=== PATIENT | male | born 1950 | race Caucasian/White ===

== ENCOUNTER 2016-09-09 09:21 | Inpatient (IN) | payer MEDICARE, OTHER ==
--- NOTE | 2016-09-08 12:33 | MH ---
cc: [facility] DATE OF ADMISSION: 09/17/2016 ADMITTING DIAGNOSIS Severe osteoarthritis of the right knee and pain of the right knee. HISTORY OF PRESENT ILLNESS The patient is a 66-year-old white male who has had a longstanding history of bilateral knee pain extending back for greater than 5 years. His symptoms initially were more pronounced about his left knee for which he had been diagnosed in the past as having osteoarthritis and in the past was treated conservatively which included viscosupplementation, cortisone injection and prescribed medication including Lortab for pain management. He became progressively more symptomatic with pain and subsequently underwent a left total knee arthroplasty completed in August 2014 for which the patient was noted to have tolerated his operative procedure well and completing an uneventful postoperative recovery thereafter. With the passage of time the patient became progressively more symptomatic with pain involving his right knee for which he had undergone a more recent MRI scan evaluation which identified tricompartmental osteoarthritis, especially throughout the medial compartment with chronic degeneration and complex tears of the medial meniscus. There was a tear of the anterior cruciate ligament as well associated with a popliteal cyst. The patient had indicated his desire to proceed with further disposition with regards to the pain about his right knee and having noted the favorable response that he had experienced from his previous surgery involving the left knee he was desirous of completing similar management with regards to his right knee condition. Once again the involvement of total knee arthroplasty was outlined in detail for which the patient indicated full understanding and expressed his desire to proceed accordingly. In compliance with his wishes he is currently being admitted in order that the above be accomplished. PAST MEDICAL HISTORY His past medical history, hospitalizations and surgeries in addition to his left total knee arthroplasty included: 1. Radiation therapy for a history of cancer of the prostate followed by seed implants. 2. Colonoscopy. His medical illnesses include hypertension. MEDICATIONS 1. Kesha 10/40 mg daily for hypertension. 2. Paxil 40 mg daily for anxiety. 3. Lortab 10 mg and ibuprofen p.r.n. for pain management. ALLERGIES HE INDICATES A DRUG ALLERGY TO CHOLESTEROL MEDICATION THAT HAS CAUSED CRAMPS AND SPASMS AND SWEATS. REVIEW OF SYSTEMS He wears glasses for reading purposes. No headache, seizure or syncope. Occasional sinus congestion. No epistaxis. Diminished auditory acuity for which bilateral hearing aids are utilized. No tinnitus. No bleeding gums or dysphagia. No cough, shortness of breath, upper respiratory infection. He has a history of pneumonia. No angina or heart disease. Medically managed for hypertension. Appetite good. Bowel movements regular. No hepatitis, gallbladder disease, ulcers or hemorrhoids. No urinary tract infection. No kidney stones. Prostate cancer as described. No previous fractures. No psychiatric illness. His remaining review of systems is unremarkable and noncontributory. FAMILY HISTORY 47 years. His is 66 years of age and indicated to be in good health. One son and one daughter. His daughter has a history of ulcerative colitis. Family history is positive for hypertension, diabetes, heart disease, breast and prostate cancer. 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 He completed a high school education. Denies active use of tobacco. Ethanol consumption denied for at least more than 25 years but had been a social drinker in the past. PHYSICAL EXAMINATION Height 6 feet 1 inch, weight 290 pounds. GENERAL: An alert, oriented and responsive 66-year-old white male who sits quietly upon the examination table with no obvious distress. HEAD, EYES, EARS, NOSE, AND THROAT: Pupils are equally round and reactive to light. Extraocular movements full. Sclera clear. External nares clear. External auditory canals clear. Semi-edentulous. Mucous membranes pink and moist. Pharynx clear. NECK: Supple. Active range of motion without significant pain. Carotid pulse palpable bilaterally. Trachea midline. Thyroid without enlargement. LUNGS: Clear to auscultation and percussion. BACK: No CVA tenderness. No discomfort throughout the dorsolumbar spine. HEART: Regular rhythm. No murmur or gallop. ABDOMEN: Soft, nontender. Bowel sounds present. RECTAL: Per primary care physician. EXTREMITIES: Right knee: No obvious swelling or effusion. There is limited mobility in the 100 degrees range of flexion with mild discomfort at the extreme of motion. No associated crepitation. No collateral ligamentous instability. Michaela test and drawer sign negative. Pivot shift and Ashvin sign positive for medial compartment pain. Straight-leg raising unremarkable at 80 degrees. Satisfactory mobility of the right hip with no associated pain. Mild antalgic gait. NEUROLOGIC: Cranial nerves II through XII grossly intact. IMPRESSION Severe osteoarthritis of the right knee, pain right knee. PLAN Right total knee arthroplasty. Once again the nature of the planned surgical procedure, the potential complications and risks associated, the expectations of surgery and the consent form were thoroughly reviewed with the patient prior to his admission to the hospital. Magy has indicated his full understanding regarding all of the above and given consent to proceed with treatment as outlined. MD TOBI Genao/BT /12:09 PM /12:23 PM
[~2016-09-09] VITALS: Ht 185.4 cm; Wt 133.0 kg
[2016-09-09] MEDS ORDERED: PAXI40TA PO (09:41)
[2016-09-09] MEDS ORDERED: AZOR10TA4 PO (09:41)
[2016-09-09] MEDS ORDERED: MOTR200T4 PO (09:41)
[2016-09-09] MEDS ORDERED: HYDR-3535 PO (09:41)
[2016-09-17] MEDS ORDERED: BUPIVACAINE HCL PF 0.25% 30 ML VIAL NERV BLOCK ONE (07:47)
[2016-09-17] MEDS ORDERED: BUPIVACAINE HCL PF 0.5% 30 ML VIAL NERV BLOCK ONE (07:47)
[2016-09-17] MEDS ORDERED: METOPROLOL TARTRATE 25 MG TAB PO PRN (08:15)
[2016-09-17] MEDS ORDERED: LACTATED RINGER'S 1000 ML IV SCH (08:15)
[2016-09-17] MEDS ORDERED: ceFAZolin 2 GM PREMIX 50 ML IV SCH (08:15)
[2016-09-17] MEDS ORDERED: TRANEXAMIC ACID 1 GM PRIOR TO PROCEDURE IV SCH ×2 (08:15)
[2016-09-17] MEDS ORDERED: SODIUM CHLORID 0.9% 500 ML IV SCH (08:15)
[2016-09-17] MEDS ORDERED: INSULIN HUMAN REGULAR 1,000 UNITS/10 ML VIAL SQ PRN (08:15)
[2016-09-17] MEDS ORDERED: TRANEXAMIC ACID 1 GM POST-OP IV SCH ×2 (08:15)
[2016-09-17 08:18] VITALS: BP 133/85; PULSE 69; RESP 16; TEMP 98.8; O2SAT 97
[2016-09-17] MEDS ORDERED: FAMOTIDINE 20 MG/2 ML VIAL ONE (09:34)
[2016-09-17] MEDS ORDERED: MIDAZOLAM HCL 5 MG/5 ML VIAL ONE (09:34)
[2016-09-17] MEDS ORDERED: ceFAZolin INJ 1,000 MG VIAL ONE (09:57)
[2016-09-17] MEDS ORDERED: SODIUM CHLORIDE 0.9% 20 ML VIAL ONE (10:03)
[2016-09-17] MEDS ORDERED: TRANEXAMIC ACID INJ 1,000 MG/10 ML AMP IV ONE (10:33)
[2016-09-17] MEDS ORDERED: PROPOFOL 200 MG/20 ML AMP IV ONE (12:04)
[2016-09-17] MEDS ORDERED: ePHEDrine/NS 25 MG/5 ML SYR IV ONE (12:04)
[2016-09-17] MEDS ORDERED: PHENYLEPH/NS 1000 MCG/10 ML SYR IV ONE (12:05)
[2016-09-17] MEDS ORDERED: NEOSTIGMINE 3 MG/3 ML SYR IV ONE (12:05)
[2016-09-17] MEDS ORDERED: LACTATED RINGER'S 1000 ML INJ 1,000 ML IV ONE (12:05)
[2016-09-17] MEDS ORDERED: ONDANSETRON HCL 4 MG/2 ML VIAL IV PUSH ONE (12:05)
[2016-09-17] MEDS: DEXT 5%-NACL 0.45% 1000 ML INJ 1,000 ML IV SCH (12:38)
[2016-09-17] MEDS ORDERED: *morphine SULFATE 8 MG/ML PERIprocedure ONLY ONE ×2 (12:39→13:15)
[2016-09-17] MEDS ORDERED: fentaNYL CITRATE 250 MCG/5 ML AMP ONE (12:40)
[2016-09-17] MEDS ORDERED: ACETAMINOPHEN 325 MG TAB PO PRN (12:45)
[2016-09-17] MEDS ORDERED: MORPHINE SULFATE 30 MG/30 ML PCA IV SCH (12:45)
[2016-09-17] MEDS ORDERED: MAGNESIUM HYDROXIDE SUSP 30 ML CUP PO PRN (12:45)
[2016-09-17] MEDS ORDERED: Post-op Orders (for Pharmacy) MISC XX ONE (12:45)
[2016-09-17] MEDS ORDERED: DOCUSATE SODIUM 100 MG CAP PO PRN (12:45)
[2016-09-17] MEDS ORDERED: ACETAMINOPHEN/HYDROcodone 325 MG/5 MG TAB PO PRN (12:45)
[2016-09-17] MEDS ORDERED: MISCELLANEOUS PHARMACY INFORMATION XX ONE (12:45)
[2016-09-17] MEDS ORDERED: TRANEXAMIC ACID INJ 1,000 MG in SODIUM CHLORIDE 0.9% INJ 100 ML IV SCH (12:45)
[2016-09-17] MEDS ORDERED: ZOLPIDEM TARTRATE 5 MG TAB PO PRN (12:45)
[2016-09-17] MEDS ORDERED: NALOXONE HCL 0.4 MG/ML AMP IV PRN (12:45)
[2016-09-17] MEDS ORDERED: SODIUM CHLORIDE 0.9% FLUSH 5 ML FLUSH IVF PRN (12:45)
[2016-09-17] MEDS ORDERED: BISACODYL 10 MG SUPP RECTAL PRN (12:45)
[2016-09-17] MEDS ORDERED: diphenhydrAMINE HCL 25 MG CAP PO PRN (12:45)
[2016-09-17] MEDS ORDERED: DO NOT ADM ANY ANTICOAGULANT DRUGS PRN (13:15)
--- NOTE | 2016-09-17 13:51 | RADRPT ---
EXAM DATE/TIME: 09/17/2016 13:00 [facility] COMPARISON: No previous studies available for comparison. INDICATIONS : Post op right knee. MEDICAL HISTORY : Hypertension. Carcinoma, prostatic. Radiation therapy. SURGICAL HISTORY : Vasectomy. Seed implant. ENCOUNTER: Initial ACUITY: 1 day PAIN SCORE: 0/10 LOCATION: Right knee. FINDINGS: 2 views of the knee show a total knee prosthesis in good position. No fracture or dislocation is obse rved. Soft tissue swelling is noted. Surgical drain noted. CONCLUSION: Total knee prosthesis in good position. Sean Alvarado Jr., MD on September 17, 2016 at 13:46 Board Certified Radiologist. This report was verified electronically.
[2016-09-17] MEDS: ONDANSETRON HCL 4 MG/2 ML VIAL IVP PRN (17:40)
--- NOTE | 2016-09-17 18:18 | PD.CONS ---
HPI Service [facility] Hospitalists Consult Requested By Dr. Templeton Reason for Consult Medical management Primary Care Physician Geraldo Busch M.D. Diagnoses: History of Present Illness This a pleasant 66-year-old male with history of osteoarthritis, hypertension. Patient has a long-standing history of osteoarthritis, has failed conservative management as outpatient. Patient admitted for elective surgery, underwent a left total knee arthroplasty. Patient is examined in the recovery room, pain is tolerable. Hemodynamically stable. Denies any chest pain, no shortness of breath. Hospitalist services are requested for medical management. (Kathy Cordoba) Review of Systems Constitutional: DENIES: Diaphoretic episodes, Fatigue, Fever, Weight gain, Weight loss, Chills, Dizziness, Change in appetite, Night Sweats Endocrine: DENIES: Heat/cold intolerance, Polydipsia, Polyuria, Polyphagia Eyes: DENIES: Blurred vision, Diplopia, Eye inflammation, Eye pain, Vision loss , Photosensitivity, Double Vision Ears, nose, mouth, throat: DENIES: Tinnitus, Hearing loss, Vertigo, Nasal discharge, Oral lesions, Throat pain, Hoarseness, Ear Pain, Running Nose, Epistaxis, Sinus Pain, Toothache, Odynophagia Respiratory: DENIES: Apneas, Cough, Snoring, Wheezing, Hemoptysis, Sputum production, Shortness of breath Cardiovascular: DENIES: Chest pain, Palpitations, Syncope, Dyspnea on Exertion , PND, Lower Extremity Edema, Orthopnea, Claudication Gastrointestinal: DENIES: Abdominal pain, Black stools, Bloody stools, Constipation, Diarrhea, Nausea, Vomiting, Difficulty Swallowing, Anorexia Genitourinary: DENIES: Sexual dysfunction, Urinary frequency, Urinary incontinence, Urgency, Hematuria, Dysuria, Nocturia, Penile Discharge, Testicular Pain, Testicular Swelling Musculoskeletal: COMPLAINS OF: Joint pain, DENIES: Muscle aches, Stiffness, Joint Swelling, Back pain, Neck pain Integumentary: DENIES: Abnormal pigmentation, Nail changes, Pruritus, Rash Hematologic/lymphatic: DENIES: Bruising, Lymphadenopathy Immunologic/allergic: DENIES: Eczema, Urticaria Neurologic: DENIES: Abnormal gait, Headache, Localized weakness, Paresthesias, Seizures, Speech Problems, Tremor, Poor Balance Psychiatric: DENIES: Anxiety, Confusion, Mood changes, Depression, Hallucinations, Agitation, Suicidal Ideation, Homicidal Ideation, Delusions ( Kathy Cordoba) Past Family Social History Past Medical History 1. Hypertension. 2. Hyperlipidemia. 3. Anxiety. 4. Arthritis. 5. History of prostate cancer status post radiation therapy and seed implants. Past Surgical History Left knee arthroplasty 2014 Reported Medications Reported Meds & Active Scripts Active Reported Motrin Ib (Ibuprofen) 200 Mg Tab 800 Mg PO Q4H PRN Lortab (Hydrocodone-Acetaminophen) 10-325 Mg Tab 1 Tab PO Q6H PRN Paxil (Paroxetine HCl) 40 Mg Tab 40 Mg PO DAILY Kesha (Amlodipine-Olmesartan) 10-40 Mg Tab 1 Tab PO DAILY (Kathy Cordoba) Allergies: Coded Allergies: HMG-CoA Reductase Inhibitors (Verified Allergy, Severe, Cramping, 09/09/16) Lipitor (Unverified Allergy, Intermediate, MUSCLE CRAMPS; SWEATING ; ALLERGIC TO ALL CHOLES MEDS, 09/09/16) Active Ordered Medications Inpatient Medications Acetaminophen 650 mg 650 mg Q6H PRN PO Temp > 101; Start 09/17/16 at 12:45 Acetaminophen/ Hydrocodone Bitart ([place] 5-325 Mg) 2 tab Q4H PRN PO PAIN SCALE 5 TO 10; Start 09/17/16 at 12:45 Bisacodyl (Dulcolax Supp) 10 mg DAILY PRN RECTAL CONSTIPATION; Start 09/17/16 at 12:45 Cefazolin Sodium/ Dextrose 50 ml @ 100 mls/hr PROGRAM DIRECTOR CABLE TELEVISION IV ; Start 09/17/16 at 08:15; Stop 09/20/16 at 08:14 Cefazolin Sodium/ Sodium Chloride (Ancef Inj/NS Inj) 100 ml @ 200 mls/hr Q6H IV Last administered on 09/17/16t 17:50; Start 09/17/16 at 15:00; Stop at 03:29 Dextrose/Sodium Chloride (D5W-1/2 NS 1000 ml Inj) 1,000 ml @ 125 mls/hr Q8H IV ; Start 09/17/16 at 12:38 Diphenhydramine HCl (Benadryl) 25 mg Q6H PRN PO ITCHING; Start 09/17/16 at 12: 45 Docusate Sodium (Colace) 100 mg BID PRN PO constipation; Start 09/17/16 at 12: 45 Insulin Human Regular (NovoLIN R INJ) See Protocol Table ... UNSCH X1 PRN SQ SEE PROTOCOL; Start 09/17/16 at 08:15; Stop 09/18/16 at 08:14 IV Flush (NS Flush) 2 ml UNSCH PRN IVF FLUSH AFTER USING IV ACCESS; Start 09/17 at 12:45 IV Flush 2 ml 2 ml BID IVF ; Start 09/17/16 at 21:00 Lactated Ringer's 1,000 ml @ 30 mls/hr Q24H IV ; Start 09/17/16 at 08:15 Magnesium Hydroxide (Milk Of Magnesia Liq) 30 ml DAILY PRN PO CONSTIPATION; Start 09/17/16 at 12:45 Metoprolol Tartrate (Lopressor) 25 mg UNSCH X1 PRN PO SEE LABEL COMMENTS; Start 09/17/16 at 08:15; Stop 09/18/16 at 08:14 Miscellaneous Information ALL NURSING DEPARTME... UNSCH PRN .XX SEE LABEL COMMENTS; Start 09/17/16 at 13:15; Stop 09/18/16 at 13:14 Miscellaneous Information (Post-op Orders (for Pharmacy)) STAT ONCE XX ; Start 09/17/16 at 12:45; Stop 09/17/16 at 13:33; Status DC Miscellaneous Medication ([facility]) ONCE ONCE XX ; Start at 12:45; Stop 09/17/16 at 13:32; Status DC Morphine Sulfate (Morphine 1 Mg/ ml MOTOR AND CHASSIS INSPECTOR) 30 mg UNSCH IV Last administered on 17:56; Start 09/17/16 at 12:45 Naloxone HCl (Narcan Inj) 0.4 mg UNSCH PRN IV RESPIRATORY RATE LESS THAN 10; Start 09/17/16 at 12:45 Ondansetron HCl (Zofran Inj) 4 mg Q6H PRN IVP NAUSEA OR VOMITING Last administered on 09/17/16 17:40; Start 09/17/16 at 12:45 MOTOR AND CHASSIS INSPECTOR Dosage Infused (Pha) 1 1 Q8HR .XX ; Start 09/17/16 at 14:00 Povidone Iodine 1 applic 1 applic ONCE TOPICAL ; Start 09/17/16 at 08:15; Stop 09/20/16 at 08:14 Rivaroxaban (Xarelto) 10 mg Q24H PO ; Start 09/18/16 at 11:00 Sodium Chloride (NS 500 ml Inj) 500 ml @ 30 mls/hr [id number] IV ; Start 09/17/16 at 08:15; Stop 09/18/16 at 08:14 Tranexamic Acid 1000 mg/Sodium Chloride 110 ml @ 220 mls/hr ONCE IV ; Start at 08:15; Stop 09/18/16 at 08:14 Tranexamic Acid/ Sodium Chloride (Cyklokapron Inj/ NS Inj) 110 ml @ 200 mls/hr UNSCH IV ; Start 09/17/16 at 12:45; Stop 09/17/16 at 13:21; Status DC Zolpidem Tartrate (Ambien) 5 mg HS PRN PO SLEEP; Start 09/17/16 at 12:45 Family History Positive for hypertension, diabetes and heart conditions. Social History The patient does not smoke. Occasional ETOH. No substance abuse. , lives with . (Kathy Cordoba) Physical Exam Vital Signs Vital Signs Date Time Temp Pulse Resp B/P Pulse Ox O2 Delivery O2 Flow Rate FiO2 09/17/16 17:56 18 09/17/16 12:37 98.1 76 16 122/73 94 Nasal Cannula 3 09/17/16 08:18 98.8 69 16 133/85 97 Physical Exam GENERAL: This is a well-nourished, well-developed patient, in no apparent distress. SKIN: No rashes, ecchymoses or lesions. Cool and dry. HEAD: Atraumatic. Normocephalic. No temporal or scalp tenderness. EYES: Pupils equal round and reactive. Extraocular motions intact. No scleral icterus. No injection or drainage. ENT: Nose without bleeding, purulent drainage or septal hematoma. Throat without erythema, tonsillar hypertrophy or exudate. Uvula midline. Airway patent. NECK: Trachea midline. No JVD or lymphadenopathy. Supple, nontender, no meningeal signs. CARDIOVASCULAR: Regular rate and rhythm without murmurs, gallops, or rubs. RESPIRATORY: Clear to auscultation. Breath sounds equal bilaterally. No wheezes , rales, or rhonchi. GASTROINTESTINAL: Abdomen soft, non-tender, nondistended. No hepato-splenomegaly , or palpable masses. No guarding. MUSCULOSKELETAL: Right knee with bulky dressing, able to dorsiflex, intact sensation. Bilat pedal pulses 2+ NEUROLOGICAL: Awake, oriented x 3. No focal deficits. Laboratory Laboratory Tests Test 09/17/16 08:20 Blood Type O POSITIVE Antibody Screen NEGATIVE (Kathy Cordoba) Imaging Last Impressions Knee X-Ray 09/17/16 0648 Signed Impressions: Service Date/Time: Saturday, September 17, 2016 13:00 - CONCLUSION: Total knee prosthesis in good position. Sean Alvarado Jr., MD (Kathy Cordoba) A/P Diagnosis: (1) Status post total right knee replacement (2) DJD (degenerative joint disease) of knee (3) HTN (hypertension) Assessment and Plan Thank you for this consultation, we will assist with medical management 66-year-old male with a history of osteoarthritis, status post right total knee arthroplasty -Continue postoperative orthopedic care Xarelto for DVT prophylaxis Pain management Physical therapy evaluation Hypertension, stable Resume home medications Depression, stable Resume home medication Home medications reviewed, initiated as indicated CBC and BMP in the morning Plan of care has been discussed with the patient, attending and registered nurse. Further management of the patient will be dependent on the hospital course This patient was seen by myself and Dr. Faria, this consultation is written on his behalf (Kathy Cordoba) Assessment and Plan evaluation done meds reviwed rad data reviwed dw ziggy about plan of care dw pt dw rn agree with above plan of care (Jean Faria MD) Problem Qualifiers (1) DJD (degenerative joint disease) of knee: Qualified Code: M17.11 - Osteoarthritis of right knee, unspecified osteoarthritis type (2) HTN (hypertension): Qualified Code: I10 - Essential hypertension Kathy Cordoba Sep 17, 2016 18:18 Jean Faria MD Sep 17, 2016 20:42
[2016-09-17] MEDS: PCA - TOTAL MG MORPHINE DELIVERED PER SHIFT SCH (22:00)
[2016-09-17 22:38] VITALS: BP 101/63; PULSE 92; RESP 16; TEMP 97.9; O2SAT 93
[2016-09-18] VITALS (7 sets, daily range): BP systolic 96–130; BP diastolic 52–83; PULSE 80–106; RESP 16–18; TEMP 96.1–99; O2SAT 92–96
[2016-09-18] MEDS: PCA - TOTAL MG MORPHINE DELIVERED PER SHIFT SCH ×2 (06:00→14:00)
[2016-09-18] MEDS ORDERED: HYDR-3516 PO (06:15)
[2016-09-18] MEDS ORDERED: ASPI325T PO (06:15)
--- NOTE | 2016-09-18 06:16 | HHI.FF ---
Face to Face Verification Diagnosis: (1) DJD (degenerative joint disease) of knee Physical Therapy Gait training Knee: Total knee, Protocol: Right, Full weight bearing Right LE Weight Bearing: WB as tolerated Right LE Range of Motion: Active ROM Nursing Dressing Changes: Daily dressing change I have seen patient Magy Moore on 09/18/16. My clinical findings support the need for the requested home health care services because: Limited ability to care for self High risk of falls I certify that my clinical findings support that this patient is homebound because: Post-op weakness Unsteady gait/balance Unsafe to leave home unassisted Ernesto Templeton MD Sep 18, 2016 06:16
[2016-09-18] MEDS ORDERED: WALKER WHEELS/F1 MIS (06:18)
[2016-09-18] MEDS: SODIUM CHLORIDE 0.9% FLUSH 5 ML FLUSH IVF SCH ×2 (06:41→08:56)
[2016-09-18] MEDS: ONDANSETRON HCL 4 MG/2 ML VIAL IVP PRN (06:44)
[2016-09-18] MEDS: POVIDONE IODINE 7.5% SCRUB 118 ML BOTTLE TOPICAL SCH (08:15)
[2016-09-18] MEDS: ACETAMINOPHEN/HYDROcodone 325 MG/5 MG TAB PO PRN ×3 (08:55→22:08)
[2016-09-18] MEDS: PARoxetine HCL 20 MG TAB PO SCH (08:55)
[2016-09-18] MEDS: LOSARTAN 50 MG TAB PO SCH (08:55)
[2016-09-18] MEDS ORDERED: NON-FORMULARY DRUG (Amlodipine-Olmesartan (Azor) 1 TAB) PO SCH (09:00)
[2016-09-18 11:20] LABS: HEMATOCRIT 39.4 % (39.0-51.0); REVIEW FLAG FINAL
[2016-09-18] MEDS: RIVAROXABAN 10 MG TAB PO SCH (11:37)
[2016-09-18 11:42] LABS: BICARBONATE 27.2 MEQ/L (21.0-32.0); POTASSIUM 4.9 MEQ/L (3.5-5.1)
--- NOTE | 2016-09-18 13:27 | HHI.PR ---
Subjective Remarks up in chair alert, oriented rt. knee, mild edema in rm. mild nausea early am, no emesis Afebrile Objective Objective Results - Vital Signs Date Time Temp Pulse Resp B/P Pulse Ox O2 Delivery O2 Flow Rate FiO2 09/18/16 12:00 98.7 92 16 96/52 93 09/18/16 10:01 95 21 09/18/16 08:00 96.1 88 16 101/59 96 09/18/16 06:00 15 09/18/16 04:00 97.5 106 17 114/83 94 09/18/16 00:00 97.0 95 17 130/65 93 09/17/16 22:38 97.9 92 16 101/63 93 09/17/16 22:00 16 09/17/16 21:58 95 16 106/64 88 Nasal Cannula 3 09/17/16 21:00 88 16 109/61 94 Nasal Cannula 3 09/17/16 20:00 86 16 106/65 92 Nasal Cannula 3 09/17/16 19:00 88 16 111/70 94 Nasal Cannula 3 09/17/16 18:00 92 16 120/75 94 Nasal Cannula 3 09/17/16 17:56 18 09/17/16 17:00 95 16 96/57 92 Nasal Cannula 3 09/17/16 16:00 85 16 95/69 91 Nasal Cannula 3 09/17/16 15:00 89 16 95/68 90 Nasal Cannula 3 09/17/16 14:00 87 16 102/67 90 Nasal Cannula 3 09/17/16 13:45 84 16 107/74 92 Nasal Cannula 3 09/17/16 13:30 86 16 118/72 94 Nasal Cannula 3 I/O 09/17/16 09/17/16 09/17/16 09/18/16 09/18/16 09/18/16 07:00 15:00 23:00 07:00 15:00 23:00 Intake Total 1450 ml 150 ml 240 ml Output Total 50 ml 400 ml 215 ml Balance 1400 ml -250 ml 25 ml Intake Oral 240 ml Autotransfusion 150 ml Other 1450 ml Output Urine Total 250 ml 125 ml Drainage Total 90 ml Estimated Blood Loss 50 ml Autotransfusion 150 ml # Bowel Movements 0 Result Diagram: 09/18/16 1107 09/18/16 1107 Other Results Last Impressions Knee X-Ray 09/17/16 1238 Signed Impressions: Service Date/Time: Saturday, September 17, 2016 13:00 - CONCLUSION: Total knee prosthesis in good position. Sean Alvarado Jr., MD Medications and IVs Active Medications Amlodipine Besylate (Norvasc) 10 mg DAILY PO; Start 09/18/16 at 09:00 Cefazolin Sodium/ Sodium Chloride (Ancef Inj/NS Inj) 100 ml @ 200 mls/hr Q6H IV Last administered on 09/17/16 17:50; Admin Dose 200 MLS/HR; Start 09/17/16 at 15:00; Stop 09/17/16 at 21:54; Status DC Cefazolin Sodium/ Sodium Chloride (Ancef Inj/NS Inj) 100 ml @ 200 mls/hr Q6H IV Last administered on 09/18/16 06:41; Admin Dose 200 MLS/HR; Start 09/18/16 at 00:00; Stop 09/18/16 at 06:29; Status DC IV Flush 2 ml 2 ml BID IVF Last administered on 09/18/16 08:56; Admin Dose 2 ML ; Start 09/17/16 at 21:00 Losartan Potassium 100 mg 100 mg DAILY PO; Start 09/18/16 at 09:00 Non-Formulary Medication 1 tab DAILY PO; Start 09/18/16 at 09:00; Status UNV Paroxetine HCl (Paxil) 40 mg DAILY PO Last administered on 09/18/16 08:55; Admin Dose 40 MG; Start 09/18/16 at 09:00 BEAM DYER RECESSED VAT Dosage Infused (Pha) 1 Q8HR .XX Last administered on 09/18/16 06:00; Admin Dose 1; Start 09/17/16 at 14:00 Rivaroxaban (Xarelto) 10 mg Q24H PO Last administered on 09/18/16 11:37; Admin Dose 10 MG; Start 09/18/16 at 11:00 ROS General: Weakness (mild status post right knee arthroplasty, mild nausea first 24 hours no emesis, chronic pain, with systems negative or unremarkable), Other (10 point ROS done, positives noted mild weakness right knee, other systems negative or unremarkable. Encourage patient to drink by mouth fluids) Neuro/MS: Other (right knee dressing clean dry and intact) Physical Exam Physical Exam PHYSICAL EXAMINATION GENERAL: This is an obese well-developed, well-nourished male who appears to be in no acute distress sitting up in chair He is alert and awake HEAD: Normocephalic without any lesion or mass noted. Facial features appear symmetric. OROPHARYNGEAL: Oropharynx without erythema or edema. NECK: Supple. No nuchal rigidity or lymphadenopathy. Trachea midline without deviation. CARDIAC: Regular rhythm, regular rate, S1 and S2 are heard. Murmur none no gallops or rubs. LUNGS: Clear to auscultation bilaterally. ABDOMEN: Soft, obese, nontender, no organomegaly or masses. Bowel sounds are heard in all four quadrants. No rebound. No guarding. EXTREMITIES: mild edema. Pulses equal bilateral. NEUROLOGICAL: Patient mood and affect appropriate. No focal deficit SKIN:Warm and moist Objective Remarks I'm doing okay today A/P Assessment and Plan (1) Status post total right knee replacement (2) DJD (degenerative joint disease) of knee (3) HTN (hypertension) 4. Acute Kidney Injury -Continue postoperative orthopedic care and pain management Xarelto for DVT prophylaxis Physical therapy eval and treat, plan to go to [facility] for follow-up rehabilitation once he is released from ortho Plan for the next day or 2 Hypertension, systolic BP initially 130/systolic, today running low 100s to 96 systolic We will monitor routine meds as well as pain management. Patient is asymptomatic from any dizziness, or shortness of breath Depression, stable Resume home medication Vital signs monitored, systolic BP 96-104 systolic, asymptomatic Labs monitored and reviewed, Acute kidney injury with mild B UN and creatinine elevation. Encouraged hydration and encouraged by mouth fluids Lab blood sugar 116, nondiabetic, monitor Hemoglobin stable at 13 Discharge Planning [facility] within the next day or 2 Discussed With: Nurse, Family (patient and his ), Other (Dr. Faria, patient seen on his behalf) Elsa Ferreira Sep 18, 2016 13:27
[2016-09-19] VITALS: BP 118/68; PULSE 107; RESP 17; TEMP 99.3; O2SAT 97
[2016-09-19] MEDS: ACETAMINOPHEN/HYDROcodone 325 MG/5 MG TAB PO PRN ×3 (02:39→12:13)
[2016-09-19 04:00] VITALS: BP 110/65; PULSE 91; RESP 17; TEMP 98.4; O2SAT 94
[2016-09-19 06:48] LABS: HEMATOCRIT 34.7 % (39.0-51.0); MEAN CELL VOLUME 84.1 FL (80.0-100.0); MEAN CORPUSCULAR HEMOGLOBIN 29.1 PG (27.0-34.0); MEAN CORPUSCULAR HGB CONC 34.6 % (32.0-36.0); PLATELET COUNT 213 TH/MM3 (150-450); RED BLOOD COUNT 4.12 MIL/MM3 (4.50-5.90); RED CELL DISTRIBUTION WIDTH 13.3 % (11.6-17.2); REVIEW FLAG FINAL
[2016-09-19 07:44] LABS: BICARBONATE 30.9 MEQ/L (21.0-32.0); POTASSIUM 4.3 MEQ/L (3.5-5.1)
[2016-09-19 08:00] VITALS: BP 121/65; PULSE 88; RESP 18; TEMP 98.3; O2SAT 94
[2016-09-19] MEDS: POVIDONE IODINE 7.5% SCRUB 118 ML BOTTLE TOPICAL SCH (08:15)
[2016-09-19] MEDS: LOSARTAN 50 MG TAB PO SCH (09:00)
[2016-09-19] MEDS: SODIUM CHLORIDE 0.9% FLUSH 5 ML FLUSH IVF SCH ×2 (09:00→21:00)
--- NOTE | 2016-09-19 09:54 | HHI.PR ---
Subjective Remarks Resting in bed alert, oriented rt. knee, mild edema Appetite good Pain management BP stable Temp 99 3 high, otherwise normal (Elsa Ferreira) Objective Objective Results - Vital Signs Date Time Temp Pulse Resp B/P Pulse Ox O2 Delivery O2 Flow Rate FiO2 09/19/16 08:00 98.3 88 18 121/65 94 09/19/16 04:00 98.4 91 17 110/65 94 09/19/16 00:00 99.3 107 17 118/68 97 09/18/16 20:00 99.0 97 18 122/72 92 09/18/16 16:00 98.1 80 18 106/64 94 09/18/16 14:00 18 09/18/16 12:00 98.7 92 16 96/52 93 09/18/16 10:01 95 21 I/O 09/18/16 09/18/16 09/18/16 09/19/16 09/19/16 09/19/16 07:00 15:00 23:00 07:00 15:00 23:00 Intake Total 240 ml 1018 ml 240 ml 240 ml Output Total 215 ml 100 ml 840 ml 1030 ml Balance 25 ml 918 ml -600 ml -790 ml Intake Oral 240 ml 860 ml 240 ml 240 ml IV Total 158 ml Output Urine Total 125 ml 800 ml 1000 ml Drainage Total 90 ml 100 ml 40 ml 30 ml # Voids 4 # Bowel Movements 0 0 0 (Elsa Ferreira) Result Diagram: 09/19/16 0609/19/16 0606 ROS General: Fatigue (status post right total knee arthroplasty), Weakness, Other ( 10 point ROS done positives noted are generalized weakness and fatigue, constipation. BP within normal range today other systems unremarkable) GI: Other (constipation) (Elsa Ferreira) Physical Exam Physical Exam PHYSICAL EXAMINATION GENERAL: This is an obese well-developed, well-nourished male who appears to be in no acute distress. He is alert HEAD: Normocephalic without any lesion or mass noted. Facial features appear symmetric. OROPHARYNGEAL: Oropharynx without erythema or edema. NECK: Supple. No nuchal rigidity or lymphadenopathy. Trachea midline without deviation. CARDIAC: Regular rhythm, regular rate, S1 and S2 are heard. Murmur none no gallops or rubs. LUNGS: Clear to auscultation bilaterally. ABDOMEN: Soft, nontender, no organomegaly or masses. Bowel sounds are heard in all four quadrants. No rebound. No guarding. No BM since admission EXTREMITIES: Mild right knee postop edema. Pulses equal bilateral. NEUROLOGICAL: Patient mood and affect appropriate. No focal deficit SKIN:Warm and moist Objective Remarks I'm feeling much better today (Elsa Ferreira) A/P Assessment and Plan (1) Status post total right knee replacement (2) DJD (degenerative joint disease) of knee (3) HTN (hypertension) 4. Acute Kidney Injury -Continue postoperative orthopedic care and pain management Xarelto for DVT prophylaxis Physical therapy eval and treat, plan to go to [facility] in a.m. (Thursday) , as long as medically stable Hypertension, with bouts of hypotension yesterday. Patient denied any symptoms but was given gentle hydration Today acute kidney injury is resolved, BP within normal range Depression, stable Resume home medication Vital signs monitored, normal ranges today with temp high of 99 3, otherwise normal ranges Labs monitored and reviewed, Acute kidney injury with mild B UN and creatinine resolved Encouraged hydration and encouraged by mouth fluids Lab blood sugar 126, nondiabetic, monitor Hemoglobin stable at 12. Discharge Planning [facility] within the next day or 2 Discussed With: Nurse, Family (patient and his ), Other (Dr. Faria, patient seen on his behalf) (Elsa Ferreira) Assessment and Plan Patient seen and examined as above Medications and labs reviewed Plan of care discussed with LINE INSTALLER TROLLEY Discussed with patient Agree with above plan of care (Jean Faria MD) Elsa Ferreira Sep 19, 2016 09:54 Jean Faria MD Sep 19, 2016 13:16
[2016-09-19] MEDS: PARoxetine HCL 20 MG TAB PO SCH (10:28)
[2016-09-19] MEDS: RIVAROXABAN 10 MG TAB PO SCH (10:33)
[2016-09-19 11:15] VITALS: BP 115/64; PULSE 90; RESP 18; TEMP 98; O2SAT 95
[2016-09-19] MEDS: DEXT 5%-NACL 0.45% 1000 ML INJ 1,000 ML IV SCH (12:38)
[2016-09-19] MEDS: PCA - TOTAL MG MORPHINE DELIVERED PER SHIFT SCH (14:00)
[2016-09-19 15:37] VITALS: BP 122/62; PULSE 91; RESP 19; TEMP 98.7; O2SAT 99
[2016-09-19 20:40] VITALS: BP 139/74; PULSE 94; RESP 20; TEMP 99.6; O2SAT 96
[2016-09-20 00:10] VITALS: BP 136/68; PULSE 84; RESP 20; TEMP 98.3; O2SAT 97
[2016-09-20 08:00] VITALS: BP 154/81; PULSE 89; RESP 18; TEMP 98.9; O2SAT 95
[2016-09-20] MEDS: SODIUM CHLORIDE 0.9% FLUSH 5 ML FLUSH IVF SCH (09:00)
[2016-09-20] MEDS: PARoxetine HCL 20 MG TAB PO SCH (09:02)
[2016-09-20] MEDS: LOSARTAN 50 MG TAB PO SCH (09:02)
[2016-09-20] MEDS: ACETAMINOPHEN/HYDROcodone 325 MG/5 MG TAB PO PRN (09:02)
[2016-09-20 10:59] VITALS: O2SAT 97
--- NOTE | 2016-09-20 11:36 | MP ---
cc: SIDNEY TEMPLETON MD DATE OF SURGERY: 09/17/2016 PREOPERATIVE DIAGNOSIS: Severe osteoarthritis of the right knee and pain of the right knee. POSTOPERATIVE DIAGNOSIS: Severe osteoarthritis of the right knee and pain of the right knee. OPERATION: Right total knee arthroplasty. SURGEON: Sidney Templeton M.D. ANESTHESIA: General endotracheal anesthesia INDICATIONS: The patient is a 66 year-old white male with a longstanding history of bilateral knee pain extending back at least five years, when the patient notes he had experienced the gradual onset of his symptoms unrelated to injury or unusual activity. He was diagnosed as having an arthritic condition for which he was treated conservatively which included viscosupplementation, cortisone injections, prescribed medications including Lortab for pain management. He became progressively more symptomatic with pain with the passage of time and subsequently underwent a left total knee arthroplasty on August of 2014. The patient was noted to have tolerated his operative procedure well and completing an uneventful postoperative recovery thereafter. With the passage of time he became progressively more symptomatic with pain, especially his right knee for which he has undergone an MRI scan which identified tricompartmental osteoarthritis especially throughout the medial compartment and chronic degeneration and complex tears of the medial meniscus. There was a tear of the anterior cruciate ligament as well as a popliteal cyst. The patient returned to the office in follow up disposition and at that time overall findings and treatment options were reviewed, the pros and cons of continuing with conservative management versus operative intervention that would involve a total knee arthroplasty were outlined in detail. Emphasis was made regarding the fact that the decision to proceed with surgery would be left entirely to the patient's discretion. He readily admitted that he was at a point in time where his pain and incapacitation was of such a degree that he was desirous of proceeding with operative intervention as discussed, and in compliance with his wishes he was scheduled for admission at this time in order that total knee arthroplasty be completed. FORMAT Following the induction of satisfactory general anesthesia by endotracheal intubation as completed per the department of anesthesia, a tourniquet was established around the proximal portion of the right lower extremity. The extremity proper was isolated with a U drape thereafter being prepped with Betadine solution and draped into a sterile field in the routine manner. Prior to initiation of the actual procedure the standard time-out protocol was completed. All parameters were appropriately addressed and confirmed by operating room personnel. The extremity was elevated for approximately one minute. The tourniquet thus inflated to 250 mmHg pressure. A sharp skin incision was initiated midline over the anterior aspect of the knee and developed through underlying subcutaneous tissue with hemostasis maintained by electrocautery. By deepening dissection the anterior capsule was exposed. A medial capsulotomy completed and the patella subluxed in a lateral orientation. Examination of the joint space revealed tricompartmental degenerative changes being most pronounced about the medial compartment where there was complete erosion of articular cartilage and underlying subchondral bone exposed. The articular surface of the patella was resected with power saw. The three holed guide was utilized for establishing post holes. Thereafter anterior cruciate ligament, medial and lateral meniscus structures were sharply excised. A centering hole was placed in the distal aspect of the femur allowing positioning of the intramedullary guide. The distal femoral cutting jig was attached and the distal femur resected. AP measurement noted 70 mg sizing to be appropriate. The matching cutting block was positioned. Anterior, posterior and chamfer cuts were completed. The tibial plateau was thereafter subluxed in an anterior orientation allowing positioning of the extramedullary guide. The tibial plateau was resected and measured with 83 mm sizing determined be satisfactory. A trial reduction followed utilizing a 70 mm anatomic femoral component. An 83 mm tibial base with a 10 mm bearing insert was trialed. The knee was readily brought to full extension. There was no laxity to varus valgus stress at both zero and 90 degrees flexed posture. Orientation was confirmed as being appropriate with measurement of the pelvic guide through the mechanical axis of the knee. A trial reduction followed utilizing a 34 mm standard three post patellar button. Once again good tracking demonstrated with no tendency toward subluxation. All trial components being removed, the remaining portion of the proximal tibia was prepared for insertion of the permanent component. The joint space was thoroughly lavaged with pulsating antibiotic solution. Hemostasis again maintained by electrocautery. An autogenous bone plug was inserted into the distal femoral guide hole and thereafter preparation of cobalt bone cement was utilized in inserting knee components in a sequential fashion which included and 83 mm fixed cruciate tibial plate through which a 10 mm Vanguard tibial bearing insert was secured with locking holland. A 70 mm Vanguard femoral component was firmly seated onto the distal femur, excess cement being removed, the knee was brought to full extension and thereafter the 34 mm standard three post patellar button was attached and maintained in place with patellar clamp while cement hardening was completed. Final range of motion assessment noted good tracking stability throughout the knee. Irrigation was repeated with hemostasis maintained. Autovac drain tubes were inserted through superior stab wounds. The capsule was repaired with 0 Vicryl suture. The remaining portion of the wound was closed in layers in the routine manner. Skin margins being reapproximated with a running subcuticular 3-0 Vicryl suture over which Steri-Strips were applied. Xeroform gauze and a bulky dry sterile dressing placed. Tourniquet deflated after 60 minutes of tourniquet time, the extremity being supported in a canvas knee splint, anesthesia was discontinued and the patient thus transferred to a hospital bed and returned to recovery room in satisfactory condition having tolerated his operative procedure well. Estimated blood loss approximately 75-100 cc. All implants were of the [employer] Purification Operator. MD TOBI Genao/GEO /12:32 PM /10:23 AM
[2016-09-20 12:00] VITALS: BP 129/76; PULSE 101; RESP 18; TEMP 96.7; O2SAT 97
[2016-09-20] MEDS: RIVAROXABAN 10 MG TAB PO SCH (12:15)
--- NOTE | 2016-09-20 13:18 | HHI.PR ---
Subjective Remarks minimal pain no cp no sob no fever has not had BM yet Objective Objective Results - Vital Signs Date Time Temp Pulse Resp B/P Pulse Ox O2 Delivery O2 Flow Rate FiO2 09/20/16 12:00 96.7 101 18 129/76 97 09/20/16 10:59 97 21 09/20/16 08:00 98.9 89 18 154/81 95 09/20/16 00:10 98.3 84 20 136/68 97 09/19/16 20:40 99.6 94 20 139/74 96 09/19/16 15:37 98.7 91 19 122/62 99 I/O 09/19/16 09/19/16 09/19/16 09/20/16 09/20/16 09/20/16 07:00 15:00 23:00 07:00 15:00 23:00 Intake Total 240 ml 240 ml Output Total 1030 ml 1000 ml Balance -790 ml 240 ml -1000 ml Intake Oral 240 ml 240 ml Output Urine Total 1000 ml 1000 ml Drainage Total 30 ml # Voids 4 1 # Bowel Movements 0 0 0 Result Diagram: 09/19/16 0606 09/19/16 0606 Imaging Last Impressions Knee X-Ray 09/17/16 1238 Signed Impressions: Service Date/Time: Saturday, September 17, 2016 13:00 - CONCLUSION: Total knee prosthesis in good position. Sean Alvarado Jr., MD ROS General: No: Fatigue, Weakness HEENT: No: Sore Throat, Dysphagia Cardiac: No: Chest Pain, Edema, Palpitations Pulmonary: No: Cough, SOB, Wheezing GI: Other (constipation), No: Abdominal Pain, BM, Diarrhea, N/V /BINGO MANAGER: No: Dysuria, Urgency Neuro/MS: Other (knee pain), No: Lightheaded, Confusion Psych: No: Anxiety, Depression Skin: No: Itching, Rash Physical Exam Physical Exam PHYSICAL EXAMINATION GENERAL: This is an obese well-developed, well-nourished male who appears to be in no acute distress. He is alert HEAD: Normocephalic without any lesion or mass noted. Facial features appear symmetric. OROPHARYNGEAL: Oropharynx without erythema or edema. NECK: Supple. No nuchal rigidity or lymphadenopathy. Trachea midline without deviation. CARDIAC: Regular rhythm, regular rate, S1 and S2 are heard. Murmur none no gallops or rubs. LUNGS: Clear to auscultation bilaterally. ABDOMEN: Soft, nontender, no organomegaly or masses. Bowel sounds are heard in all four quadrants. No rebound. No guarding. No BM since admission EXTREMITIES: Mild right knee postop edema. Pulses equal bilateral. NEUROLOGICAL: Patient mood and affect appropriate. No focal deficit SKIN:Warm and moist Urinary Catheter: No Vascular Central Line Catheter: No A/P Diagnosis: (1) Status post total right knee replacement (2) DJD (degenerative joint disease) of knee (3) HTN (hypertension) (4) Acute renal injury Assessment and Plan 66-year-old male with a history of osteoarthritis, status post right total knee arthroplasty -Continue postoperative orthopedic care Xarelto for DVT prophylaxis Pain management Physical therapy evaluation -cleared for discharge by ortho [place] post op, now resolved -IVF given -enc. to inc. po intake Hypertension, stable continue home medications Depression, stable continue home medication Labs reviewed, stable ok for discharge to rehab bowel regimen MOM given D/W RN D/W Dr. Faria D/W pt. This patient was seen by myself and Dr. Faria, this note is written on his behalf Problem Qualifiers (1) DJD (degenerative joint disease) of knee: Qualified Code: M17.11 - Osteoarthritis of right knee, unspecified osteoarthritis type (2) HTN (hypertension): Qualified Code: I10 - Essential hypertension Kathy Cordoba Sep 20, 2016 13:18
--- NOTE | 2016-09-25 09:13 | MD ---
cc: SIDNEY RUTLEDGE MD ADMISSION DATE: 09/17/2016 DISCHARGE DATE: 09/20/2016 ADMITTING DIAGNOSIS Severe osteoarthritis of the right knee and pain of the right knee. DISCHARGE DIAGNOSIS Severe osteoarthritis of the right knee and pain of the right knee. HISTORY A 66-year-old white male with a longstanding history of bilateral knee pain extending back for at least five years with the patient initially being more symptomatic on the left side for which he was diagnosed as having osteoarthritis and treated conservatively which included viscosupplementation, cortisone injection and prescribed medication including Lortab. He became progressively more symptomatic with pain and subsequently underwent a left total knee arthroplasty in August of 2014. The patient was noted to have tolerated his operative procedure well, completing an uneventful recovery thereafter. With the passage of time, he became progressively more symptomatic with pain involving his right knee for which a recent MRI scan had identified tricompartmental osteoarthritis especially throughout the medial compartment with complex tears of the medial meniscus. There was a tear of the anterior cruciate ligament, as well as a popliteal cyst. The patient returned to the office in follow-up disposition indicating that he was having increasing pain about his right knee and was desirous of proceeding with a more definitive course of treatment given the favorable outcome that he had noted with regards to his previous surgery. His current x-ray studies had revealed severe degenerative changes especially throughout the medial compartment with near [id number] apposition. In compliance with his wishes, he was scheduled for admission at this time in order that the above be accomplished. PHYSICAL EXAM His physical examination at the time of admission revealed no obvious swelling or effusion about the right knee. There was limited mobility in the 100 degrees range of flexion with pain at the extreme of motion. No crepitation. No collateral ligamentous instability. Michaela test and drawer sign negative. Pivot shift and Ashvin sign positive for medial compartment pain. Straight-leg raising unremarkable at 80 degrees, satisfactory mobility of the right hip with no associated pain. Antalgic gait. HOSPITAL COURSE Upon admission to the hospital, the patient was taken to the operating room on 17 September 2016 and on that date underwent a right total knee arthroplasty completed in an uncomplicated manner. The patient was noted to have tolerated his operative procedure well and his postoperative course stable thereafter. Hemoglobin/hematocrit assessment postoperatively was 13 and 39.4 respectively. The patient was progressively mobilized under the guidance of physical therapy being permitted weightbearing to tolerance about the right lower extremity. Follow up examination of his surgical wound noted to be intact healing favorably, no evidence of infection. Medical followup completed per the hospitalist service. DVT prophylaxis initiated. business services clerk consulted to assist with discharge planning. The patient had indicated his desire to be discharged to a local rehab facility where he might continue with his rehab program. Plans were finalized in this regard through the assistance of the Social Service Department and pending medical clearance, he was scheduled for transfer on the third postoperative day at which time he was noted to be making stable progress with regards to his rehabilitation. His condition at that time was stable and prognosis favorable. MEDICATIONS Discharge medications included: 1. Hydrocodone 5/325 #60 2. Aspirin 325 mg one tablet twice daily for three weeks #40 MD TOBI Genao/TUAN /6:46 AM /9:05 AM
== END 2016-09-20 13:30 | DRG 470 ==
LOC: HSDI 09-17 05:40 → N06B 09-17 22:14
PROVIDERS: ADMIT Orthopaedic Surgery; ATTEND Orthopaedic Surgery
PROC: 0SRC0J9 Replacement of Right Knee Joint with Synthetic Substitute, Cemented, Open Approach (ICD-10-PCS; principal; 2016-09-17 09:59)
DX: M17.11 Unilateral primary osteoarthritis, right knee (principal); N17.9 Acute kidney failure, unspecified; I95.9 Hypotension, unspecified; I10 Essential (primary) hypertension; F41.9 Anxiety disorder, unspecified; K59.00 Constipation, unspecified; S83.511A Sprain of anterior cruciate ligament of right knee, initial encounter; M71.21 Synovial cyst of popliteal space [Baker], right knee; E66.9 Obesity, unspecified; Z68.38 Body mass index [BMI] 38.0-38.9, adult; E78.5 Hyperlipidemia, unspecified; Z85.46 Personal history of malignant neoplasm of prostate; Z92.3 Personal history of irradiation; Z96.652 Presence of left artificial knee joint
CPT/HCPCS: 73560; 80048; 85014; 85018; 85027; 86850; 86891; 86900; 86901; 88305; 88311; 94150; C1776; J0690; J2250; J2270; J2370; J2405; J2710; J3010; J7120; L1830

== ENCOUNTER → 2016-09-09 | Outpatient (CLI) | payer MEDICARE, OTHER ==
[~2016-09-09] MED LIST: ASPI325T PO; AZOR10TA4 PO; CHOL1TAB16 PO; HYDR-3516 PO; HYDR-3535 PO; LORTA5 PO; MOTR200T4 PO; PARO40TA PO; PAXI40TA PO; RIVA10 PO; WALKER WHEELS/F1 MIS; Z.0.WALKERFRONT
[2016-09-09 10:05] LABS: BLOOD, URINE TRACE (NEG); COMMENT (UR) CULT NOT INDICATED; CULTURE IF INDICATED CULT NOT INDICATED; GLUCOSE,URINE NEG (NEG); HYALINE CAST, URINE 2 /lpf (RARE); KETONE, URINE NEG (NEG); MUCUS URINE FEW /lpf (OCC); NITRITE,URINE NEG (NEG); PH, URINE 5.5 (5.0-8.5); SQUAMOUS EPITHELIAL CELL URINE <1 /hpf (0-5); URINE COLOR YELLOW (YELLW/STRAW)
[2016-09-09 10:09] LABS: BASOPHIL % 0.3 % (0.0-2.0); EOSINOPHIL # 0.2 TH/MM3 (0-0.4); EOSINOPHIL % 3.5 % (0.0-4.0); HEMATOCRIT 44.9 % (39.0-51.0); HEMO FLAGS DIFF FINAL; LYMPH % 29.7 % (9.0-44.0); MEAN CELL VOLUME 83.8 FL (80.0-100.0); MEAN CORPUSCULAR HEMOGLOBIN 28.2 PG (27.0-34.0); MEAN CORPUSCULAR HGB CONC 33.7 % (32.0-36.0); MONO % 7.8 % (0.0-8.0); NEUT % 58.7 % (16.0-70.0); PLATELET COUNT 275 TH/MM3 (150-450); RED BLOOD COUNT 5.36 MIL/MM3 (4.50-5.90); RED CELL DISTRIBUTION WIDTH 13.3 % (11.6-17.2); WHITE BLOOD COUNT 6.8 TH/MM3 (4.0-11.0)
[2016-09-09 10:12] LABS: INTERNATIONAL NORMALIZED RATIO 1.1 RATIO; PROTHROMBIN TIME - PATIENT 11.9 SEC (9.8-11.6)
--- NOTE | 2016-09-09 10:36 | RADRPT ---
EXAM DATE/TIME: 09/09/2016 10:09 [facility] COMPARISON: No previous studies available for comparison. INDICATIONS : Evaluate for pneumonia, pneumothorax, or communicable disease. Pre op for rigth total knee replacemen t. MEDICAL HISTORY : Hypertension. Carcinoma, prostatic. Radiation therapy. SURGICAL HISTORY : Vasectomy. Seed implant ENCOUNTER: Initial ACUITY: 1 day PAIN SCORE: 0/10 LOCATION: chest FINDINGS: PA and lateral views of the chest demonstrate the lungs to be symmetrically aerated without evidence of mass, infiltrate or effusion. The cardiomediastinal contours are unremarkable. Osseous structure s are intact. Mild degenerative changes are noted involving the thoracic spine. CONCLUSION: No acute disease. Viktor Noble MD on September 09, 2016 at 10:34 Board Certified Radiologist. This report was verified electronically.
[2016-09-09 10:38] LABS: BICARBONATE 28.3 MEQ/L (21.0-32.0); POTASSIUM 3.7 MEQ/L (3.5-5.1)
== END ==
LOC: CPRE 09:18
PROVIDERS: ATTEND Orthopaedic Surgery
DX: M17.0 Bilateral primary osteoarthritis of knee (principal)
CPT/HCPCS: 36415; 71020; 80048; 81001; 85025; 85610